=== PATIENT | female | born 1955 | race Caucasian/White ===

== ENCOUNTER → 2019-07-07 | Day surgery (SDC) | payer BC ==
[~2019-07-07] MED LIST: ALPR0.25 PO; ARIP5TAB13 PO; DULO30CA2 PO; DULO60CA6 PO; IV RINGERS SOLUTION,LACTATED 1,000 ML IV SCH; PROPOFOL 20 ML IV ONE
[2019-07-07 11:44] VITALS: BP 123/86
== END | disposition home or self-care (01) ==
LOC: SURG 10:15
PROVIDERS: ATTEND Internal Medicine Gastroenterology
DX: Z12.11 Encounter for screening for malignant neoplasm of colon (principal); K62.89 Other specified diseases of anus and rectum; K63.89 Other specified diseases of intestine; F41.9 Anxiety disorder, unspecified; E66.9 Obesity, unspecified; F31.9 Bipolar disorder, unspecified; Z86.010 Personal history of colon polyps; Z98.890 Other specified postprocedural states; Z79.899 Other long term (current) drug therapy; Z87.891 Personal history of nicotine dependence; Z68.31 Body mass index [BMI] 31.0-31.9, adult
CPT/HCPCS: 45378; J2704; J7120